=== PATIENT | female | born 1945 | race Caucasian/White ===

== ENCOUNTER 2017-06-18 10:17 | Outpatient (CLI) | payer MEDICARE, OTHER | END 2017-06-18 10:18 | disposition home or self-care (01) | LOC: BICMAMMO 10:17 | PROVIDERS: ATTEND Family Medicine | DX: Z12.31 Encounter for screening mammogram for malignant neoplasm of breast (principal); Z85.3 Personal history of malignant neoplasm of breast; Z80.3 Family history of malignant neoplasm of breast | CPT/HCPCS: 77063; 77067 ==

== ENCOUNTER 2018-01-13 14:52 | Observation (INO) | payer MEDICARE, OTHER ==
[2018-01-13] MEDS ORDERED: Water For Inject, Bacteriostat 30 ML ONE (15:11)
[2018-01-13] MEDS ORDERED: methylPREDNISolone Sod Succ/PF 125 MG/2 ML VIAL ONE (15:11)
[2018-01-13] MEDS ORDERED: EPINEPHrine 1 MG/ML AMP ONE (15:11)
[2018-01-13] MEDS ORDERED: diphenhydrAMINE 50 MG/ML VIAL ONE (15:11)
[2018-01-13] MEDS ORDERED: Famotidine/PF 20 mg/2ml Vial ONE (15:11)
[2018-01-13 15:22] LABS: Hemoglobin 13.7 g/dL (12.0-16.0); Mean Corpuscular Hemoglobin 29.7 pg (27.0-31.0); Mean Corpuscular Volume 92.9 fL (78.0-98.0); Mean Platelet Volume 7.3 fL (7.4-10.4); Platelet Count 457 thou/uL (130-400); RBC Distribution Width 12.3 % (11.5-14.5); Red Blood Cell (RBC) Count 4.63 mill/uL (4.20-5.40); White Blood Cell (WBC) Count 9.5 thou/uL (4.8-10.8)
[2018-01-13 15:42] LABS: ALT (SGPT) 14 U/L (8-55); AST (SGOT) 20 U/L (5-34); Albumin 3.9 g/dL (3.4-4.8); Alkaline Phosphatase 39 U/L (40-150); Anion Gap 14 mmol/L (10-20); BUN (Urea Nitrogen) 20 mg/dL (9.8-20.1); Bilirubin, Total 0.5 mg/dL (0.2-1.2); Calc. Creatinine Clearance 0 mL/min (70-130); Calcium 9.4 mg/dL (7.8-10.44); Carbon Dioxide 22 mmol/L (23-31); Chloride 110 mmol/L (98-107); Estimated GFR-MDRD 52; Globulin 2.6 g/dL (2.4-3.5); Glucose 122 mg/dL (83-110); Potassium 4.2 mmol/L (3.5-5.1); Protein, Total 6.5 g/dL (6.0-8.3); Sodium 142 mmol/L (136-145)
--- NOTE | 2018-01-13 15:46 | CT ---
CT HEAD NONCONTRAST: Indication: New onset dizziness, slurred speech, stroke alert. FINDINGS: There is intracranial streak artifact from patient motion, related to the calvarium. Otherwise, there is no evidence of acute intracranial hemorrhage, mass effect, midline shift of ventriculomegaly. Mil d chronic ischemic disease is present. There is mild mucosal thickening of the paranasal sinuses. IMPRESSION: No acute intracranial abnormality. Telephone call of findings placed to ED physician, Reji Lund, at 1537 hours, 01/13/2018. POS: PAT
[2018-01-13 15:47] LABS: PTT 27.5 SEC (22.9-36.1); Prothrombin Time 13.5 SEC (12.0-14.7)
[2018-01-13 15:48] LABS: Band 1 % (5-11); Eosinophils 4 % (0-10); Lymphocytes 68 % (21-51); MDiff Complete? YES; Monocytes 3 % (0-10); Neutrophil 24 % (42-75); PLT Morphology Comment Appears Increased
[2018-01-13 15:54] LABS: CKMB 1.2 ng/mL (0-6.6); Troponin I Less than 0.010 ng/mL (< 0.028)
[2018-01-13] MEDS ORDERED: Aspirin 81 mg Enteric Coated Tablet ONE (16:23)
[2018-01-13] MEDS ORDERED: Iopamidol 370 76% 100 ML VIAL ONE (16:31)
--- NOTE | 2018-01-13 16:53 | CT ---
CTA NECK WITH 3D VOLUME RENDERING AND WITH CONTRAST CTA HEAD WITH 3D VOLUME RENDERING AND WITH CONTRAST 01/13/18 INDICATION: Dizziness, blurred vision, facial droop, stroke alert. FINDINGS: The imaged aortic arch is patent and there is gross patency of the great vessel origins that emanate from the aortic arch although these are partially obscured by streak artifact from adjacent venous co ntrast bolus. No high grade stenosis of either subclavian artery. The bilateral common carotid arteri es reveal symmetric caliber without high grade stenosis or occlusion. No high grade stenosis of eithe r cervical ICA. Evaluation of each vertebral artery is performed which reveals a dominant right verte bral artery which is patent throughout its course. The nondominant, diffusely small caliber left vert ebral artery is patent. Evaluation of the [place] of [place]res reveals no significant stenosis or evidenc e of occlusion. There is vascular calcification at each carotid siphon without significant stenosis e vident. IMPRESSION: Mild atherosclerotic vascular disease without high grade stenosis or occlusion. Telephone call of findings placed to ER physician, Bhumika Lund at 1553 hours, 01/13/18. Code CR POS: PAT
[2018-01-13] MEDS ORDERED: Acetaminophen 325 MG TAB PO PRN (18:24)
[2018-01-13] MEDS ORDERED: hydrALAZINE 20 MG/ML VIAL SLOW IVP PRN (18:24)
[2018-01-13] MEDS ORDERED: diphenhydrAMINE 50 MG/ML VIAL IVP PRN (18:28)
--- NOTE | 2018-01-13 19:01 | HP ---
DATE OF ADMISSION: 01/13/2018 PRIMARY CARE PHYSICIAN: Chyna Nichols M.D. CHIEF COMPLAINT: Allergic reaction. HISTORY OF PRESENT ILLNESS: Ms. Greenberg is a pleasant 72-year-old lady who was seen at [facility] on 01/13/2018. She denies having any drug allergies. She also reports eating shrimp in the past without any problem . Today, she had shrimp for lunch. Two hours later, both her hands started itching and turned red. Th e sensation traveled up both arms. She then reported blurred vision when she presented to the emerge ncy room, but reports that is no longer the case. She denies any tongue swelling. She reports any s ensation of airway problems in the form of obstruction. She denies any nausea or vomiting. She repo rts feeling better at this time. REVIEW OF SYSTEMS: All other systems reviewed and found to be negative. PAST MEDICAL HISTORY: Hypertension, diabetes mellitus type 2, dyslipidemia and asthma. PAST SURGICAL HISTORY: Tonsillectomy. SOCIAL HISTORY: The patient denies tobacco use, alcohol use or recreational drug use. CODE STATUS: I discussed her code status. She is full code. Her surrogate decision maker is Michael Greenberg. FAMILY HISTORY: She reports a history of cerebrovascular accident in her mother. ALLERGIES: No known drug allergies. CURRENT MEDICATIONS: The patient is unable to recall the names of her medications. This will need t o be clarified. PHYSICAL EXAMINATION: GENERAL: Ms. Greenberg is awake and alert, not in acute distress. VITAL SIGNS: Blood pressure is 124/59, pulse 98, respiratory rate 17 and oxygen saturation 100% on r oom air. She is afebrile. When she presented to the emergency room, she had a blood pressure of 70/ 45 and pulse of 90. EYES: No scleral icterus. No conjunctival pallor. She has bilateral ecchymosis, worse on the left. Visual acuity is preserved. ENT: Moist mucous membranes. No oropharyngeal erythema or exudates. No swollen tongue. No swollen lips. NECK: Supple, nontender. Trachea is midline. RESPIRATORY: Accessory muscles of breathing are not active. Chest wall movements are symmetric bila terally. LUNGS: Clear to auscultation without wheeze, rhonchi or crepitations. CARDIOVASCULAR: S1 and S2 are heard, regular. Peripheral pulses palpable. No carotid bruit. No pe ricardial rub. ABDOMEN: Soft, nontender. Bowel sounds are heard. No hepatomegaly, no splenomegaly. NEUROLOGIC: She has right facial droop. Otherwise, cranial nerves II-XII are intact. No focal massimo r or sensory deficits. Power is 5/5 in all 4 extremities. Deep tendon reflexes are 2+. Plantars do wngoing bilaterally. MUSCULOSKELETAL: Power is 5/5 in all 4 extremities. SKIN: No rashes or subcutaneous nodules. LYMPHATIC: No cervical lymphadenopathy. PSYCHIATRIC: Normal mood, normal affect. The patient is oriented to person, place and time. LABORATORY DATA: Ms. Greenberg's labs and investigations were reviewed. I reviewed her electrocardiogr am, which shows normal sinus rhythm, no ST changes to suggest an acute coronary syndrome. I also rev iewed noncontrast CT scan of the brain, which does not show any bleed or infarct. She also had CT an giogram of [place] of [place], which showed mild atherosclerotic vascular disease without high grade st enosis or occlusion. She has normal white count, normal hemoglobin, elevated platelet count of 457,0 00, neutrophil percentage decreased at 24, lymphocyte percentage increased at 68%, INR 1.0, normal so dium, normal potassium, slightly decreased carbon dioxide of 22, normal creatinine, unremarkable live r profile and normal troponin I. ASSESSMENT AND PLAN: Ms. Greenberg is a pleasant 72-year-old lady who was seen at [facility] on 01/13/2018. Her problem list includes: 1. Allergic reaction: Ms. Greenberg appears to have presented with allergic reaction to shrimp. She h as received epinephrine, H1 and H2 blockers and steroids, with improvement in her symptoms. She will be admitted to the hospital for observation. We will continue her on H2 obey, steroids and p.r.n . H1 obey. 2. Ischemic cerebrovascular accident: Suspected, given the facial droop. CT scan of the brain is u nremarkable. We will check MRI of brain and 2D echocardiogram. We will consult Neurology Service fo r opinion and help with management. She takes baby aspirin at home. We will continue her on aspirin . 3. Dyslipidemia: Continue the patient on statin once clarified. 4. Diabetes mellitus type 2: Start Accu-Cheks, insulin sliding scale. Many thanks for allowing me to participate in your patient's care. Please feel free to contact me wi th any questions or concerns. LEVEL OF RISK: High. LEVEL OF COMPLEXITY: High.
[2018-01-13 19:42] LABS: Troponin I Less than 0.010 ng/mL (< 0.028)
[2018-01-13] MEDS ORDERED: Atorvastatin Calcium 40 MG TAB PO SCH (21:00)
[2018-01-13 23:47] LABS: Troponin I 0.013 ng/mL (< 0.028)
[2018-01-14] MEDS: Famotidine/PF 20 mg/2ml Vial SLOW IVP SCH ×2 (00:08→10:38)
[2018-01-14 01:47] VITALS: BMI 28.3
[2018-01-14 04:44] LABS: #Basophils 0.1 thou/uL (0.0-0.2); #Lymphocytes 1.2 thou/uL (1.20-3.40); #Monocytes 0.1 thou/uL (0.11-0.59); #Neutrophils 9.4 thou/uL (1.40-6.50); %Basophils 0.7 % (0.0-1.0); %Eosinophils 0.1 % (0.0-10.0); %Lymphocytes 10.8 % (21.0-51.0); %Monocytes 0.6 % (0.0-10.0); %Neutrophils 87.8 % (42.0-75.0); Hemoglobin 12.5 g/dL (12.0-16.0); Mean Corpuscular HGB CONC 32.2 g/dL (32.0-36.0); Mean Corpuscular Hemoglobin 29.9 pg (27.0-31.0); Mean Corpuscular Volume 92.8 fL (78.0-98.0); Mean Platelet Volume 7.5 fL (7.4-10.4); Platelet Count 374 thou/uL (130-400); RBC Distribution Width 12.1 % (11.5-14.5); Red Blood Cell (RBC) Count 4.17 mill/uL (4.20-5.40); White Blood Cell (WBC) Count 10.7 thou/uL (4.8-10.8)
[2018-01-14 05:05] LABS: Anion Gap 10 mmol/L (10-20); BUN (Urea Nitrogen) 17 mg/dL (9.8-20.1); Calc. Creatinine Clearance 71 mL/min (70-130); Calcium 9.1 mg/dL (7.8-10.44); Carbon Dioxide 23 mmol/L (23-31); Cardiac Risk 2.6 (Less than 4.5); Chloride 109 mmol/L (98-107); Cholesterol 139 mg/dl (< 200 Desired); Estimated GFR-MDRD 71; Glucose 148 mg/dL (83-110); HDL Cholesterol 54 mg/dL (>60 Neg Risk); LDL Cholesterol, Calculated 79 mg/dL; Potassium 3.9 mmol/L (3.5-5.1); Sodium 138 mmol/L (136-145); Triglycerides 28 mg/dL (Less than 150)
[2018-01-14] MEDS ORDERED: Insulin Regular 300 UNITS/3 ML VIAL SC PRN (05:40)
[2018-01-14] MEDS ORDERED: Dextrose 5% in Water 1,000 ML IV PRN (05:40)
[2018-01-14] MEDS ORDERED: Dextrose 50% Abboject 50 ML SYRINGE IVP PRN (05:40)
[2018-01-14] MEDS ORDERED: Enoxaparin Sodium 40 MG/0.4 ML SYRINGE SC SCH (09:00)
[2018-01-14] MEDS ORDERED: Aspirin 81 mg Enteric Coated Tablet PO SCH (09:00)
--- NOTE | 2018-01-14 09:09 | MRI ---
MRI BRAIN WITHOUT CONTRAST: Date: 01/14/18 HISTORY: Dizziness, slurred speech, right-sided decreased sensation. FINDINGS: Correlation is made with the CT scan from previous day. No restricted diffusion is seen. No evidence of infarct, hemorrhage, midline shift, or abnormal extra -axial fluid collections are seen. The ventricular size is normal and the basilar cisterns are patent . No significant signal abnormalities are seen on the highly sensitive FLAIR images. No tonsillar her niation is identified. The visualized paranasal sinuses and mastoid air cells appear well aerated. IMPRESSION: No evidence of acute intracranial process. POS: C
--- NOTE | 2018-01-14 13:20 | PDOC.PN ---
- Subjective Encounter Start Date: 01/14/18 Encounter Start Time: 13:18 Ms. Greenberg was seen today in follow-up of Allergic reaction, and right facial droop, and trouble with word finding. She says all of her symptoms have improved. - Objective Resuscitation Status: Resuscitation Status FULL:Full Resuscitation MAR Reviewed: Yes Vital Signs & Weight: Vital Signs (12 hours) Temp Pulse Pulse Resp BP BP Pulse Ox 01/14/18 11:50 98.1 F 65 20 117/57 L 98 01/14/18 09:01 69 148/79 H 01/14/18 08:30 97.7 F 59 L 18 148/79 H 100 01/14/18 04:00 97.7 F 69 16 130/66 94 L Weight Weight 154 lb 6.4 oz I&O: 01/13/18 01/14/18 01/15/18 06:59 06:59 06:59 Intake Total 425 Balance 425 Result Diagrams: 01/14/18 04:05 01/14/18 04:05 Additional Labs: Accuchecks 01/14/18 01/14/18 01/13/18 10:36 05:59 15:32 POC Glucose 134 H 137 H 119 H Phys Exam - Physical Examination HEENT: PERRLA, sclera anicteric Respiratory: no wheezing, no rales, no rhonchi, clear to auscultation bilateral Cardiovascular: RRR, no significant murmur, no rub Gastrointestinal: soft, non-tender, no distention, positive bowel sounds Musculoskeletal: no edema Neurological: non-focal, normal sensation, moves all 4 limbs Dx/Plan (1) Allergic reaction Code(s): T78.40XA - ALLERGY, UNSPECIFIED, INITIAL ENCOUNTER Status: Acute (2) Weakness on right side of face Code(s): R29.810 - FACIAL WEAKNESS Status: Acute (3) Hypertension Code(s): I10 - ESSENTIAL (PRIMARY) HYPERTENSION Status: Chronic (4) Diabetes mellitus type 2 in nonobese Code(s): E11.9 - TYPE 2 DIABETES MELLITUS WITHOUT COMPLICATIONS Status: Chronic (5) Dyslipidemia Code(s): E78.5 - HYPERLIPIDEMIA, UNSPECIFIED Status: Chronic - Plan * Allergic reaction- resolved- can discontinue IV steroids * Right facial droop, and trouble with word finding- ? TIA- she does have risk factors for cerebral vascular disease- Will follow-up with the CTA of neck and Neurology evaluation, as patient also says she " saw bright colors" when the episode occurred * HTN- Blood pressure is stable * DM- blood glucose is stable * Dyslipidemia - continue Lipitor.
[2018-01-14 16:11] VITALS: BP 114/58; TEMP 97.9
--- NOTE | 2018-01-14 20:45 | CON ---
DATE OF CONSULTATION: 01/14/2018 NEUROLOGY CONSULTATION CONSULTING PHYSICIAN: Hospitalist Service. IMPRESSION: 1. Allergic reaction, probably to iodine. 2. Diabetes. 3. Hypertension. 4. Reflux. PLAN: Discharge on current medications. HISTORY OF PRESENT ILLNESS: Ms. Greenberg is a 72-year-old woman who reports that she had gone to eat a nd had shrimp. Following her meal, she started noticing that her hand started turning pink. She als o noted that she felt a bit dizzy and her whites of her eyes began to get a bit red. Her speech bega n to stutter a bit and she became concerned. This only lasted a matter of a few seconds. She was br ought to the emergency room for evaluation. She had a CT scan of the brain and CT angio, which were unremarkable. She had a subsequent followup MRI of the brain, which was completely normal as well. The patient has not had any further symptoms since then. Her vital signs have been stable and she herrera s been afebrile. PAST MEDICAL HISTORY: Hypertension, diabetes, reflux, breast mass that apparently was benign. ALLERGIES: SHELLFISH. SOCIAL HISTORY: No tobacco or alcohol use. FAMILY HISTORY: Noncontributory. REVIEW OF SYSTEMS: No complaint of headache, nausea, vomiting, facial droop, lateralized weakness or numbness. PHYSICAL EXAMINATION: VITAL SIGNS: Blood pressure 114/58, pulse 58, respirations 20, temperature 97.9. HEENT: Pupils equal and reactive. Conjunctivae are clear. Oropharynx clear. NECK: Supple. No lymphadenopathy. EXTREMITIES: No cyanosis, clubbing or edema. NEUROLOGIC: She is alert and appropriate. Her speech is fluent and clear. Exam is nonfocal. She c an walk independently. IMAGING: MRI images were reviewed. SUMMARY: This is a 72-year-old woman that had a probable allergic reaction to shellfish. I do not s ee any evidence of an acute neurologic event. I would continue her current home medications.
--- NOTE | 2018-01-15 13:34 | CT ---
CTA NECK WITH 3D VOLUME RENDERING AND WITH CONTRAST CTA HEAD WITH 3D VOLUME RENDERING AND WITH CONTRAST 01/13/18 INDICATION: Dizziness, blurred vision, facial droop, stroke alert. FINDINGS: The imaged aortic arch is patent and there is gross patency of the great vessel origins that emanate from the aortic arch although these are partially obscured by streak artifact from adjacent venous co ntrast bolus. No high grade stenosis of either subclavian artery. The bilateral common carotid arteri es reveal symmetric caliber without high grade stenosis or occlusion. No high grade stenosis of eithe r cervical ICA. Evaluation of each vertebral artery is performed which reveals a dominant right verte bral artery which is patent throughout its course. The nondominant, diffusely small caliber left vert ebral artery is patent. Evaluation of the [place] of [place] reveals no significant stenosis or evidenc e of occlusion. There is vascular calcification at each carotid siphon without significant stenosis e vident. IMPRESSION: Mild atherosclerotic vascular disease without high grade stenosis or occlusion. Telephone call of findings placed to ER physician, Bhumika Lund at 1553 hours, 01/13/18. Code CR
--- NOTE | 2018-01-15 14:05 | DIS ---
DATE OF ADMISSION: 01/13/2018 DATE OF DISCHARGE: 01/14/2018 PRIMARY CARE PHYSICIAN: Cyhna Nichols MD DISCHARGE DISPOSITION: Home. PRIMARY DISCHARGE DIAGNOSES: 1. 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 2. Hypertension. 3. Diabetes mellitus type 2. 4. Dyslipidemia. 5. Asthma. DISCHARGE MEDICATIONS: She is to continue her home medications. These were not reconciled during he r hospital stay. PROCEDURES DONE DURING ADMISSION: The patient had a CT scan of the brain, which was negative for any acute intracranial abnormality. The patient also had a CT angiogram showing mild atherosclerotic va scular disease without any high-grade stenosis or occlusion. The patient had an MRI of the brain elizabeth wing no evidence of any acute intracranial infarct as well as an echocardiogram showing an ejection f raction of 60%-65%. There was mildly dilated left atrium. There was mild pulmonic regurgitation and small pericardial effusion without tamponade. HOSPITAL COURSE: Ms. Greenberg is a pleasant 72-year-old female who presented to the emergency room aft er she suffered what appears to be an anaphylactoid-type allergic reaction to SHELLFISH, possibly as a result of the iodine in the shellfish. She says she had eaten shrimp before without any difficulty , but this time, she started to itch after eating some, turned red, and had a strange sensation trave ling up both arms, blurred vision as well. This later resolved after she was treated in the ER with IV steroids and IV H1 and H2 blockers. She also had mentioned some slurred speech and a strange sens ation of seeing bright colors. For this reason, she was evaluated by Neurology for possible TIA or s troke-like symptoms. She was evaluated by Dr. Miguel. He felt that her symptoms were likely the re sult of the allergic reaction and not a primary neurological event. Therefore, no changes in medicat ions were recommended or any additional workup. MRI and echo were negative, as well as CT angiogram of the neck. She was back to her baseline the following day and was therefore discharged home in sta ble condition. She is to follow up with her primary care physician in 1-2 weeks.
== END 2018-01-14 18:38 | disposition home or self-care (01) ==
LOC: ERS 14:52 → ERHOLD 16:59 → 2SE 23:04
PROVIDERS: ADMIT Internal Medicine; ATTEND Internal Medicine
DX: T78.09XA Anaphylactic reaction due to other food products, initial encounter (principal); R29.810 Facial weakness; R47.81 Slurred speech; E11.9 Type 2 diabetes mellitus without complications; E78.5 Hyperlipidemia, unspecified; I10 Essential (primary) hypertension; J45.909 Unspecified asthma, uncomplicated; K21.9 Gastro-esophageal reflux disease without esophagitis; I31.3 Pericardial effusion (noninflammatory); Z79.899 Other long term (current) drug therapy
CPT/HCPCS: 70450; 70496; 70498; 70551; 80048; 80053; 80061; 82550; 82553; 82962 ×2; 84484 ×2; 85025 ×2; 85610; 85730; 93005; 93306; 96361; 96372 ×2; 96374; 96375; 96376; 97139 ×5; 99285; G0378 ×2; G8978; G8979; G8980; G8987; G8988; G8989; 36415; 36416; G9168-GN-CJ; G9169-GN-CJ; J0171; J1200; J1650; J2920; J2930; S0028

== ENCOUNTER 2018-06-21 11:42 | Outpatient (CLI) | payer MEDICARE ==
--- NOTE | 2018-06-21 13:16 | MMO ---
Bilateral MAMMO Bilat Screen DDI+DOUG. CLINICAL HISTORY: Patient is 73 years old and is seen for screening. The patient has the following family history of breast cancer: maternal aunt. The patient has a history of malignant (generic) in the right breast at age 41. The patient has a history of right Excisional Biopsy at age 41 - malignant and right Lumpectomy at age 41 - malignant. VIEWS: The views performed were: bilateral craniocaudal with tomosynthesis and bilateral mediolateral oblique with tomosynthesis. FILMS COMPARED: The present examination has been compared to prior imaging studies performed at [facility] on 11/04/2007, 11/06/2008, 11/06/2009, 06/10/2013, 06/12/2014, 06/14/2015, 06/17/2016 and 06/18/2017, and at [facility] on 10/27/2005 and 11/02/2006. MAMMOGRAM FINDINGS: There are scattered fibroglandular densities. There are stable benign appearing calcifications seen in both breasts. There are no suspicious masses, suspicious calcifications, or new areas of architectural distortion. IMPRESSION: THERE IS NO MAMMOGRAPHIC EVIDENCE OF MALIGNANCY. A ROUTINE FOLLOW-UP MAMMOGRAM IN 1 YEAR IS RECOMMENDED. THE RESULTS OF THIS EXAM WERE SENT TO THE PATIENT. ACR BI-RADS Category 2 - Benign finding MAMMOGRAPHY NOTE: 1. A negative mammogram report should not delay a biopsy if a dominant of clinically suspicious mass is present. 2. Approximately 10% to 15% of breast cancers are not detected by mammography. 3. Adenosis and dense breasts may obscure an underlying neoplasm.
== END 2018-06-21 11:43 | disposition home or self-care (01) ==
LOC: BICMAMMO 11:42
PROVIDERS: ATTEND Family Medicine
DX: Z12.31 Encounter for screening mammogram for malignant neoplasm of breast (principal); Z85.3 Personal history of malignant neoplasm of breast; Z80.3 Family history of malignant neoplasm of breast
CPT/HCPCS: 77063; 77067

== ENCOUNTER 2021-10-24 08:41 | Outpatient (CLI) | payer MEDICARE, OTHER | END 2021-10-24 08:42 | disposition home or self-care (01) | LOC: MRI 08:41 | PROVIDERS: ATTEND Nurse Practitioner Family | DX: F03.90 Unspecified dementia, unspecified severity, without behavioral disturbance, psychotic disturbance, mood disturbance, and anxiety (principal) | CPT/HCPCS: 70551 ==

== ENCOUNTER 2022-09-06 02:54 | Inpatient (IN) | payer MEDICARE, OTHER ==
[2022-09-06 03:20] LABS: #Basophils 0.1 thou/uL (0.0-0.2); #Monocytes 1.1 thou/uL (0.11-0.59); #Neutrophils 10.9 thou/uL (1.40-6.50); %Basophils 0.7 % (0.0-1.0); %Eosinophils 0.3 % (0.0-10.0); %Lymphocytes 17.9 % (21.0-51.0); %Monocytes 7.2 % (0.0-10.0); %Neutrophils 72.8 % (42.0-75.0); Hemoglobin 15.3 g/dL (12.0-16.0); Mean Corpuscular HGB CONC 33.3 g/dL (32.0-36.0); Mean Corpuscular Hemoglobin 29.3 pg (27.0-31.0); Mean Corpuscular Volume 87.8 fl (78.0-98.0); Mean Platelet Volume 9.8 fL (7.4-10.4); Platelet Count 333 10x3/uL (130-400); Red Blood Cell (RBC) Count 5.23 mill/uL (4.20-5.40); White Blood Cell (WBC) Count 14.9 10x3/uL (4.8-10.8)
[2022-09-06 03:42] LABS: ALT (SGPT) 25 U/L (8-55); AST (SGOT) 17 U/L (5-34); Albumin 3.9 g/dL (3.4-4.8); Alkaline Phosphatase 77 U/L (40-110); Anion Gap 17 mmol/L (10-20); BUN (Urea Nitrogen) 15 mg/dL (9.8-20.1); Bilirubin, Total 1.5 mg/dL (0.2-1.2); Calc. Creatinine Clearance 0 mL/min (70-130); Calcium 9.6 mg/dL (7.8-10.44); Carbon Dioxide 19 mmol/L (23-31); Chloride 105 mmol/L (98-107); Estimated GFR 67; Globulin 3.5 g/dL (2.4-3.5); Glucose 324 mg/dL (83-110); Protein, Total 7.4 g/dL (5.8-8.1); Sodium 137 mmol/L (136-145)
[2022-09-06] MEDS ORDERED: Cefepime 2 GM VIAL ONE (04:21)
[2022-09-06] MEDS ORDERED: Vancomycin 1 GM/200 ML (FROZEN) BAG ONE ×2 (04:22→04:57)
[2022-09-06 05:01] LABS: Bacteria/HPF 1+ HPF (None Seen); Bilirubin Negative (Negative); Blood, Urine 2+ (Negative); CAUTI Indications for Culture Alt mental st,lethar; Clarity Clear (Clear); Glucose, Urine (Dipstick) Greater than 1000 mg/dL (Negative); Ketone, Urine Negative (Negative); Leukocyte 25 Leu/uL (Negative); Nitrite Negative (Negative); Protein, Urine (Dipstick) 50 mg/dL (Neg-Trace); RBC/HPF 0-3 HPF (0-3); Urobilinogen Normal mg/dL (Less than 2); pH, Urine 5.5 (5.0-9.0)
[2022-09-06 05:02] LABS: Urine Culture Reflex No No
[2022-09-06] MEDS ORDERED: hydrALAZINE 20 MG/ML VIAL ONE (05:48)
[2022-09-06 07:06] LABS: Lactic Acid 2.2 mmol/L (0.5-2.2)
[2022-09-06] MEDS ORDERED: Glucagon 1 MG/ML KIT IM PRN (10:37)
[2022-09-06] MEDS ORDERED: Ondansetron ODT 4 MG TAB PO PRN (10:37)
[2022-09-06] MEDS ORDERED: Senokot S 8.6-50 MG TAB PO PRN (10:37)
[2022-09-06] MEDS ORDERED: Acetaminophen 650 MG Suppository PR PRN (10:37)
[2022-09-06] MEDS ORDERED: Dextrose 50% Abboject 50 ML SYRINGE SLOW IVP PRN (10:37)
[2022-09-06] MEDS ORDERED: Dextrose 5% in Water 1,000 ML IV PRN (10:37)
[2022-09-06] MEDS ORDERED: Bisacodyl 10 MG SUPP PR PRN (10:37)
[2022-09-06] MEDS ORDERED: Ondansetron PF 4 MG/2 ML Vial IVP PRN (10:37)
[2022-09-06] MEDS ORDERED: HumaLOG 300 UNITS/3 ML VIAL SC PRN ×2 (10:37)
[2022-09-06] MEDS ORDERED: Albuterol 200 PUFF (6.7GM INHALER) INH PRN (10:40)
[2022-09-06] MEDS ORDERED: Electrolyte Replacement Protocol FS SCH (10:45)
[2022-09-06 11:30] VITALS: BMI 31.6
[2022-09-06] MEDS: Sodium Chloride 0.45% 1,000 ML IV SCH (11:46)
[2022-09-06] MEDS ORDERED: Iopamidol 370 76% 100 ML VIAL ONE (11:47)
[2022-09-06] MEDS ORDERED: hydrALAZINE 20 MG/ML VIAL SLOW IVP PRN ×2 (14:23→18:37)
[2022-09-06] MEDS: Cefepime 1 GM in Sodium Chloride 0.9% 100 ML IVPB SCH (18:03)
[2022-09-06] MEDS: Atorvastatin Calcium 40 MG TAB PO SCH (20:13)
[2022-09-06] MEDS: Lisinopril 10 MG TAB PO SCH (20:13)
[2022-09-06] MEDS: Donepezil HCl 5 MG TAB PO SCH (20:13)
[2022-09-06] MEDS ORDERED: Vancomycin 1 GM in Premix Bag 1 BAG IVPB SCH (21:00)
[2022-09-07] MEDS: Sodium Chloride 0.45% 1,000 ML IV SCH ×2 (01:36→18:02)
[2022-09-07] MEDS: Cefepime 1 GM in Sodium Chloride 0.9% 100 ML IVPB SCH (04:33)
[2022-09-07 05:47] LABS: #Basophils 0.1 thou/uL (0.0-0.2); #Eosinphils 0.2 thou/uL (0.0-0.7); #Monocytes 0.9 thou/uL (0.11-0.59); %Basophils 0.7 % (0.0-1.0); %Eosinophils 1.9 % (0.0-10.0); %Lymphocytes 19.3 % (21.0-51.0); %Monocytes 7.1 % (0.0-10.0); %Neutrophils 70.2 % (42.0-75.0); Mean Corpuscular HGB CONC 32.8 g/dL (32.0-36.0); Mean Corpuscular Hemoglobin 29.4 pg (27.0-31.0); Mean Corpuscular Volume 89.7 fl (78.0-98.0); Mean Platelet Volume 9.7 fL (7.4-10.4); Platelet Count 293 10x3/uL (130-400); RBC Distribution Width 14.2 % (11.5-14.5); Red Blood Cell (RBC) Count 4.18 mill/uL (4.20-5.40); White Blood Cell (WBC) Count 12.8 10x3/uL (4.8-10.8)
[2022-09-07] MEDS ORDERED: VANCOMYCIN 1.75 GM/500 ML BAG 1.75 GM in Premix Bag 1 BAG IVPB SCH (06:00)
[2022-09-07 06:03] LABS: Hemoglobin 12.3 g/dL (12.0-16.0)
[2022-09-07 06:12] LABS: ALT (SGPT) 18 U/L (8-55); AST (SGOT) 14 U/L (5-34); Alkaline Phosphatase 59 U/L (40-110); Anion Gap 10 mmol/L (10-20); BUN (Urea Nitrogen) 9 mg/dL (9.8-20.1); Bilirubin, Total 1.1 mg/dL (0.2-1.2); Calc. Creatinine Clearance 96 mL/min (70-130); Calcium 8.2 mg/dL (7.8-10.44); Carbon Dioxide 21 mmol/L (23-31); Cardiac Risk 4.7 (Less than 4.5); Chloride 108 mmol/L (98-107); Cholesterol 175 mg/dl (< 200 Desired); Estimated GFR 90; Globulin 2.6 g/dL (2.4-3.5); Glucose 185 mg/dL (83-110); HDL Cholesterol 37 mg/dL (>60 Neg Risk); LDL Cholesterol, Calculated 112 mg/dL; Magnesium 1.9 mg/dL (1.6-2.6); Potassium 3.1 mmol/L (3.5-5.1); Protein, Total 5.6 g/dL (5.8-8.1); Sodium 136 mmol/L (136-145); Triglycerides 129 mg/dL (Less than 150)
[2022-09-07] MEDS ORDERED: Potassium Chloride 20 MEQ TAB PO SCH (08:00)
[2022-09-07] MEDS ORDERED: Magnesium 2 GM/50 ML(in water) 2 GM in Premix Bag 1 BAG IVPB SCH (08:00)
[2022-09-07] MEDS ORDERED: Aspirin 81 mg Enteric Coated Tablet PO SCH (09:00)
[2022-09-07] MEDS: Aspirin 81 mg Enteric Coated Tablet PO SCH (09:03)
[2022-09-07] MEDS: Lisinopril 10 MG TAB PO SCH ×2 (09:04→20:19)
[2022-09-07] MEDS: Cefepime 2 GM in Sodium Chloride 0.9% 100 ML IVPB SCH (18:00)
[2022-09-07] MEDS: Atorvastatin Calcium 40 MG TAB PO SCH (20:19)
[2022-09-07] MEDS: Donepezil HCl 5 MG TAB PO SCH (20:19)
[2022-09-08] MEDS: Cefepime 2 GM in Sodium Chloride 0.9% 100 ML IVPB SCH ×2 (04:06→16:37)
[2022-09-08] MEDS: Sodium Chloride 0.45% 1,000 ML IV SCH ×2 (04:06→16:37)
[2022-09-08 05:31] LABS: Anion Gap 14 mmol/L (10-20); BUN (Urea Nitrogen) 8 mg/dL (9.8-20.1); Calc. Creatinine Clearance 90 mL/min (70-130); Calcium 8.9 mg/dL (7.8-10.44); Carbon Dioxide 19 mmol/L (23-31); Chloride 106 mmol/L (98-107); Estimated GFR 87; Glucose 157 mg/dL (83-110); Potassium 3.3 mmol/L (3.5-5.1); Sodium 136 mmol/L (136-145)
[2022-09-08] MEDS ORDERED: Potassium Chloride 20 MEQ TAB PO SCH (08:00)
[2022-09-08 08:31] LABS: #Basophils 0.1 thou/uL (0.0-0.2); #Eosinphils 0.3 thou/uL (0.0-0.7); #Monocytes 0.9 thou/uL (0.11-0.59); %Basophils 0.8 % (0.0-1.0); %Eosinophils 3.4 % (0.0-10.0); %Lymphocytes 25.4 % (21.0-51.0); %Monocytes 8.7 % (0.0-10.0); %Neutrophils 60.8 % (42.0-75.0); Hemoglobin 12.5 g/dL (12.0-16.0); Mean Corpuscular HGB CONC 33.2 g/dL (32.0-36.0); Mean Corpuscular Hemoglobin 29.7 pg (27.0-31.0); Mean Corpuscular Volume 89.3 fl (78.0-98.0); Mean Platelet Volume 9.6 fL (7.4-10.4); Platelet Count 310 10x3/uL (130-400); RBC Distribution Width 13.9 % (11.5-14.5); Red Blood Cell (RBC) Count 4.21 mill/uL (4.20-5.40); White Blood Cell (WBC) Count 9.9 10x3/uL (4.8-10.8)
[2022-09-08] MEDS: Lisinopril 10 MG TAB PO SCH ×2 (09:06→21:14)
[2022-09-08] MEDS: Aspirin 81 mg Enteric Coated Tablet PO SCH (09:07)
[2022-09-08] MEDS ORDERED: Bisacodyl 10 MG SUPP PR SCH (10:00)
[2022-09-08] MEDS: Donepezil HCl 5 MG TAB PO SCH (21:14)
[2022-09-08] MEDS: Atorvastatin Calcium 40 MG TAB PO SCH (21:14)
[2022-09-09] MEDS: Cefepime 2 GM in Sodium Chloride 0.9% 100 ML IVPB SCH ×2 (04:25→15:36)
[2022-09-09 06:19] LABS: #Basophils 0.1 thou/uL (0.0-0.2); #Eosinphils 0.4 thou/uL (0.0-0.7); #Monocytes 0.8 thou/uL (0.11-0.59); #Neutrophils 4.8 thou/uL (1.40-6.50); %Eosinophils 4.3 % (0.0-10.0); %Lymphocytes 31.5 % (21.0-51.0); %Monocytes 9.3 % (0.0-10.0); %Neutrophils 53.1 % (42.0-75.0); Hemoglobin 11.9 g/dL (12.0-16.0); Mean Corpuscular HGB CONC 32.5 g/dL (32.0-36.0); Mean Corpuscular Hemoglobin 29.2 pg (27.0-31.0); Mean Corpuscular Volume 89.7 fl (78.0-98.0); Mean Platelet Volume 9.6 fL (7.4-10.4); Platelet Count 351 10x3/uL (130-400); RBC Distribution Width 13.8 % (11.5-14.5); Red Blood Cell (RBC) Count 4.08 mill/uL (4.20-5.40); White Blood Cell (WBC) Count 9.1 10x3/uL (4.8-10.8)
[2022-09-09 06:51] LABS: Anion Gap 11 mmol/L (10-20); BUN (Urea Nitrogen) 6 mg/dL (9.8-20.1); Calc. Creatinine Clearance 102 mL/min (70-130); Calcium 8.7 mg/dL (7.8-10.44); Carbon Dioxide 21 mmol/L (23-31); Chloride 108 mmol/L (98-107); Estimated GFR 92; Glucose 148 mg/dL (83-110); Potassium 3.4 mmol/L (3.5-5.1); Sodium 137 mmol/L (136-145)
[2022-09-09] MEDS ORDERED: Potassium Chloride 20 MEQ TAB PO SCH (08:00)
[2022-09-09] MEDS: Aspirin 81 mg Enteric Coated Tablet PO SCH (09:06)
[2022-09-09] MEDS: Sodium Chloride 0.45% 1,000 ML IV SCH (09:07)
[2022-09-09] MEDS: Lisinopril 10 MG TAB PO SCH ×2 (09:07→20:14)
[2022-09-09] MEDS: Pantoprazole 40 MG VIAL IVP SCH (09:07)
[2022-09-09] MEDS: metFORMIN 500 MG TAB PO SCH (17:15)
[2022-09-09] MEDS: Donepezil HCl 5 MG TAB PO SCH (20:14)
[2022-09-09] MEDS: Atorvastatin Calcium 40 MG TAB PO SCH (20:14)
[2022-09-09] MEDS: Acetaminophen 325 MG TAB PO PRN (20:15)
[2022-09-10] MEDS: Cefepime 2 GM in Sodium Chloride 0.9% 100 ML IVPB SCH ×2 (03:21→16:57)
[2022-09-10 07:00] LABS: #Basophils 0.1 thou/uL (0.0-0.2); #Eosinphils 0.4 thou/uL (0.0-0.7); #Monocytes 0.9 thou/uL (0.11-0.59); #Neutrophils 4.3 thou/uL (1.40-6.50); %Eosinophils 4.8 % (0.0-10.0); %Lymphocytes 33.6 % (21.0-51.0); %Monocytes 10.6 % (0.0-10.0); %Neutrophils 49.3 % (42.0-75.0); Hemoglobin 12.2 g/dL (12.0-16.0); Mean Corpuscular HGB CONC 32.9 g/dL (32.0-36.0); Mean Corpuscular Hemoglobin 29.2 pg (27.0-31.0); Mean Corpuscular Volume 88.8 fl (78.0-98.0); Mean Platelet Volume 9.7 fL (7.4-10.4); Platelet Count 370 10x3/uL (130-400); RBC Distribution Width 13.6 % (11.5-14.5); Red Blood Cell (RBC) Count 4.18 mill/uL (4.20-5.40); White Blood Cell (WBC) Count 8.8 10x3/uL (4.8-10.8)
[2022-09-10 07:33] LABS: Anion Gap 12 mmol/L (10-20); BUN (Urea Nitrogen) 5 mg/dL (9.8-20.1); Calc. Creatinine Clearance 99 mL/min (70-130); Calcium 9.1 mg/dL (7.8-10.44); Carbon Dioxide 24 mmol/L (23-31); Chloride 107 mmol/L (98-107); Estimated GFR 91; Glucose 140 mg/dL (83-110); Potassium 3.5 mmol/L (3.5-5.1); Sodium 139 mmol/L (136-145)
[2022-09-10] MEDS: Lisinopril 10 MG TAB PO SCH (09:09)
[2022-09-10] MEDS: metFORMIN 500 MG TAB PO SCH ×2 (09:09→16:57)
[2022-09-10] MEDS: Aspirin 81 mg Enteric Coated Tablet PO SCH (09:09)
[2022-09-10] MEDS: Pantoprazole 40 MG VIAL IVP SCH (09:11)
[2022-09-10] MEDS ORDERED: Potassium Chloride 20 MEQ TAB PO SCH (09:45)
[2022-09-10] MEDS: Acetaminophen 325 MG TAB PO PRN (12:38)
[2022-09-10] MEDS: Lisinopril 20 MG TAB PO SCH (20:58)
[2022-09-10] MEDS: Atorvastatin Calcium 40 MG TAB PO SCH (20:58)
[2022-09-10] MEDS: Donepezil HCl 5 MG TAB PO SCH (20:58)
[2022-09-11] MEDS: Cefepime 2 GM in Sodium Chloride 0.9% 100 ML IVPB SCH ×2 (04:07→16:07)
[2022-09-11 07:40] LABS: Anion Gap 12 mmol/L (10-20); BUN (Urea Nitrogen) 6 mg/dL (9.8-20.1); Calc. Creatinine Clearance 89 mL/min (70-130); Carbon Dioxide 24 mmol/L (23-31); Chloride 108 mmol/L (98-107); Estimated GFR 85; Glucose 119 mg/dL (83-110); Potassium 3.3 mmol/L (3.5-5.1); Sodium 141 mmol/L (136-145)
[2022-09-11] MEDS ORDERED: Potassium Chloride 20 MEQ TAB PO SCH ×2 (08:30)
[2022-09-11] MEDS: metFORMIN 500 MG TAB PO SCH ×2 (09:19→16:07)
[2022-09-11] MEDS: Aspirin 81 mg Enteric Coated Tablet PO SCH (09:19)
[2022-09-11] MEDS: Lisinopril 20 MG TAB PO SCH ×2 (09:19→20:45)
[2022-09-11] MEDS: Pantoprazole 40 MG VIAL IVP SCH (09:20)
[2022-09-11] MEDS: Donepezil HCl 5 MG TAB PO SCH (20:45)
[2022-09-11] MEDS: Acetaminophen 325 MG TAB PO PRN (20:45)
[2022-09-11] MEDS: Atorvastatin Calcium 40 MG TAB PO SCH (20:45)
[2022-09-12 06:40] LABS: Potassium 3.8 mmol/L (3.5-5.1)
[2022-09-12 07:45] VITALS: TEMP 97.6
[2022-09-12] MEDS: Pantoprazole 40 MG VIAL IVP SCH (09:19)
[2022-09-12] MEDS: Lisinopril 20 MG TAB PO SCH (09:19)
[2022-09-12] MEDS: Aspirin 81 mg Enteric Coated Tablet PO SCH (09:19)
[2022-09-12] MEDS: metFORMIN 500 MG TAB PO SCH ×2 (09:19→17:45)
[2022-09-12 16:42] VITALS: BP 144/84
== END 2022-09-12 19:09 | DRG 871 ==
LOC: ERS 02:54 → 2NO 09:02 → T4-A 09-08 16:03
PROVIDERS: ADMIT Internal Medicine; ATTEND Internal Medicine
DX: A41.9 Sepsis, unspecified organism (principal); G93.41 Metabolic encephalopathy; F03.90 Unspecified dementia, unspecified severity, without behavioral disturbance, psychotic disturbance, mood disturbance, and anxiety; E11.9 Type 2 diabetes mellitus without complications; E78.5 Hyperlipidemia, unspecified; E78.00 Pure hypercholesterolemia, unspecified; I10 Essential (primary) hypertension; E87.6 Hypokalemia; J45.909 Unspecified asthma, uncomplicated; Z90.49 Acquired absence of other specified parts of digestive tract; Z91.013 Allergy to seafood
CPT/HCPCS: 36415; 36416; 70450; 71045; 74177; 80048; 80053; 80061; 81001; 83036; 83605; 83735; 84132; 84443; 84484; 85025; 87040; 87086; 93005; 93306; 96365; 96367; 96375; C9113; J0360; J0692; J1650; J1815; J3370; J3370-JW; J3475; J3490; Q9967

== ENCOUNTER 2023-01-24 10:44 | Inpatient (IN) | payer OTHER ==
[2023-01-24 11:27] LABS: #Basophils 0.1 thou/uL (0.0-0.2); #Eosinphils 0.2 thou/uL (0.0-0.7); #Monocytes 0.9 thou/uL (0.11-0.59); #Neutrophils 6.9 thou/uL (1.40-6.50); %Basophils 0.5 % (0.0-1.0); %Eosinophils 1.5 % (0.0-10.0); %Lymphocytes 27.3 % (21.0-51.0); %Monocytes 7.8 % (0.0-10.0); %Neutrophils 62.5 % (42.0-75.0); Hemoglobin 13.2 g/dL (12.0-16.0); Mean Corpuscular HGB CONC 32.2 g/dL (32.0-36.0); Mean Corpuscular Hemoglobin 29.2 pg (27.0-31.0); Mean Corpuscular Volume 90.7 fl (78.0-98.0); Mean Platelet Volume 9.5 fL (7.4-10.4); Platelet Count 396 10x3/uL (130-400); RBC Distribution Width 13.2 % (11.5-14.5); Red Blood Cell (RBC) Count 4.52 mill/uL (4.20-5.40)
[2023-01-24 11:53] LABS: ALT (SGPT) 10 U/L (8-55); AST (SGOT) 15 U/L (5-34); Albumin 4.2 g/dL (3.4-4.8); Alkaline Phosphatase 60 U/L (40-110); Anion Gap 17 mmol/L (10-20); BUN (Urea Nitrogen) 18 mg/dL (9.8-20.1); Bilirubin, Total 0.9 mg/dL (0.2-1.2); Calc. Creatinine Clearance 0 mL/min (70-130); Calcium 9.7 mg/dL (7.8-10.44); Carbon Dioxide 24 mmol/L (23-31); Chloride 108 mmol/L (98-107); Estimated GFR 56; Globulin 2.8 g/dL (2.4-3.5); Glucose 136 mg/dL (83-110); Potassium 3.7 mmol/L (3.5-5.1); Sodium 145 mmol/L (136-145)
[2023-01-24] MEDS ORDERED: Boostrix 0.5 ML (Tdap) VIAL (>/=7 yrs of age) ONE (12:32)
[2023-01-24] MEDS ORDERED: Acetaminophen 500 MG TAB ONE (12:32)
[2023-01-24 18:22] LABS: Bilirubin Negative (Negative); Blood, Urine 1+ (Negative); CAUTI Indications for Culture Alt mental st,lethar; Clarity Clear (Clear); Glucose, Urine (Dipstick) Normal (Negative); Ketone, Urine Negative (Negative); Leukocyte 500 Leu/uL (Negative); Nitrite 2+ (Negative); Protein, Urine (Dipstick) 10 mg/dL (Neg-Trace); Squamous Epithelial None Seen HPF (0-3); Urobilinogen Normal mg/dL (Less than 2); WBC/HPF Greater than 50 HPF (0-3); pH, Urine 5.5 (5.0-9.0)
[2023-01-24 18:24] LABS: Bacteria/HPF 1+ HPF (None Seen); Specific Gravity, Urine Greater than 1.060 (1.002-1.036)
[2023-01-24 18:25] LABS: Urine Culture Reflex Yes Yes
[2023-01-24] MEDS ORDERED: Dextrose 5% in Water 1,000 ML IV PRN (18:48)
[2023-01-24] MEDS ORDERED: Ondansetron ODT 4 MG TAB PO PRN (18:48)
[2023-01-24] MEDS ORDERED: Ondansetron PF 4 MG/2 ML Vial IVP PRN (18:48)
[2023-01-24] MEDS ORDERED: HumaLOG 300 UNITS/3 ML VIAL SC PRN ×2 (18:48)
[2023-01-24] MEDS ORDERED: Dextrose 50% Abboject 50 ML SYRINGE SLOW IVP PRN (18:48)
[2023-01-24] MEDS ORDERED: Glucagon 1 MG/ML KIT IM PRN (18:48)
[2023-01-24] MEDS ORDERED: Acetaminophen 325 MG TAB PO PRN (18:48)
[2023-01-24] MEDS ORDERED: Sodium Chloride 0.9% 100 ML ONE (18:52)
[2023-01-24] MEDS ORDERED: cefTRIAXone (ROCEPHIN) 1 GM VIAL ONE (18:52)
[2023-01-24] MEDS: Donepezil HCl 5 MG TAB PO SCH (21:39)
[2023-01-24] MEDS: Atorvastatin Calcium 40 MG TAB PO SCH (21:39)
[2023-01-24] MEDS: Lisinopril 20 MG TAB PO SCH (21:40)
[2023-01-25 06:03] LABS: #Eosinphils 0.3 thou/uL (0.0-0.7); #Monocytes 0.7 thou/uL (0.11-0.59); #Neutrophils 5.6 thou/uL (1.40-6.50); %Basophils 0.4 % (0.0-1.0); %Lymphocytes 31.5 % (21.0-51.0); %Monocytes 7.5 % (0.0-10.0); %Neutrophils 57.3 % (42.0-75.0); Hematocrit 38.3 % (36.0-47.0); Hemoglobin 12.3 g/dL (12.0-16.0); Mean Corpuscular HGB CONC 32.1 g/dL (32.0-36.0); Mean Corpuscular Hemoglobin 28.9 pg (27.0-31.0); Mean Corpuscular Volume 89.9 fl (78.0-98.0); Mean Platelet Volume 9.8 fL (7.4-10.4); Platelet Count 391 10x3/uL (130-400); RBC Distribution Width 13.4 % (11.5-14.5); Red Blood Cell (RBC) Count 4.26 mill/uL (4.20-5.40); White Blood Cell (WBC) Count 9.7 10x3/uL (4.8-10.8)
[2023-01-25 06:32] LABS: Anion Gap 13 mmol/L (10-20); BUN (Urea Nitrogen) 13 mg/dL (9.8-20.1); Calc. Creatinine Clearance 80 mL/min (70-130); Calcium 9.3 mg/dL (7.8-10.44); Carbon Dioxide 26 mmol/L (23-31); Chloride 106 mmol/L (98-107); Estimated GFR 76; Glucose 125 mg/dL (83-110); Potassium 3.2 mmol/L (3.5-5.1); Sodium 142 mmol/L (136-145)
[2023-01-25] MEDS: Lisinopril 20 MG TAB PO SCH ×2 (08:31→20:35)
[2023-01-25] MEDS: Aspirin 81 mg Enteric Coated Tablet PO SCH (08:31)
[2023-01-25] MEDS: cefTRIAXone\\ROCEPHIN 1 GM in Sodium Chloride 0.9% 100 ML IVPB SCH (17:41)
[2023-01-25] MEDS: Atorvastatin Calcium 40 MG TAB PO SCH (20:35)
[2023-01-25] MEDS: Donepezil HCl 5 MG TAB PO SCH (20:35)
[2023-01-26 06:21] LABS: #Eosinphils 0.3 thou/uL (0.0-0.7); #Monocytes 0.8 thou/uL (0.11-0.59); #Neutrophils 4.1 thou/uL (1.40-6.50); %Basophils 0.5 % (0.0-1.0); %Eosinophils 3.3 % (0.0-10.0); %Lymphocytes 39.9 % (21.0-51.0); %Monocytes 9.4 % (0.0-10.0); %Neutrophils 46.7 % (42.0-75.0); Hematocrit 36.5 % (36.0-47.0); Hemoglobin 11.8 g/dL (12.0-16.0); Mean Corpuscular HGB CONC 32.3 g/dL (32.0-36.0); Mean Corpuscular Hemoglobin 28.7 pg (27.0-31.0); Mean Corpuscular Volume 88.8 fl (78.0-98.0); Mean Platelet Volume 9.9 fL (7.4-10.4); Platelet Count 366 10x3/uL (130-400); RBC Distribution Width 13.2 % (11.5-14.5); Red Blood Cell (RBC) Count 4.11 mill/uL (4.20-5.40); White Blood Cell (WBC) Count 8.8 10x3/uL (4.8-10.8)
[2023-01-26 07:05] LABS: Anion Gap 9 mmol/L (10-20); BUN (Urea Nitrogen) 11 mg/dL (9.8-20.1); Calc. Creatinine Clearance 85 mL/min (70-130); Calcium 8.8 mg/dL (7.8-10.44); Carbon Dioxide 28 mmol/L (23-31); Chloride 106 mmol/L (98-107); Estimated GFR 81; Glucose 121 mg/dL (83-110); Potassium 3.3 mmol/L (3.5-5.1); Sodium 140 mmol/L (136-145)
[2023-01-26] MEDS: Aspirin 81 mg Enteric Coated Tablet PO SCH (08:46)
[2023-01-26] MEDS: Lisinopril 20 MG TAB PO SCH ×2 (08:46→21:02)
[2023-01-26 14:31] VITALS: BMI 31.2
[2023-01-26] MEDS: cefTRIAXone\\ROCEPHIN 1 GM in Sodium Chloride 0.9% 100 ML IVPB SCH (18:02)
[2023-01-26] MEDS: Atorvastatin Calcium 40 MG TAB PO SCH (21:02)
[2023-01-26] MEDS: Donepezil HCl 5 MG TAB PO SCH (21:02)
[2023-01-27 06:42] LABS: Anion Gap 13 mmol/L (10-20); BUN (Urea Nitrogen) 13 mg/dL (9.8-20.1); Calc. Creatinine Clearance 78 mL/min (70-130); Calcium 8.9 mg/dL (7.8-10.44); Carbon Dioxide 23 mmol/L (23-31); Chloride 107 mmol/L (98-107); Estimated GFR 74; Glucose 120 mg/dL (83-110); Potassium 3.3 mmol/L (3.5-5.1); Sodium 140 mmol/L (136-145)
[2023-01-27 07:19] LABS: #Basophils 0.1 thou/uL (0.0-0.2); #Eosinphils 0.3 thou/uL (0.0-0.7); #Monocytes 0.9 thou/uL (0.11-0.59); #Neutrophils 4.6 thou/uL (1.40-6.50); %Basophils 0.6 % (0.0-1.0); %Eosinophils 2.6 % (0.0-10.0); %Monocytes 9.1 % (0.0-10.0); %Neutrophils 46.5 % (42.0-75.0); Hematocrit 38.9 % (36.0-47.0); Hemoglobin 12.7 g/dL (12.0-16.0); Mean Corpuscular HGB CONC 32.6 g/dL (32.0-36.0); Mean Corpuscular Hemoglobin 29.3 pg (27.0-31.0); Mean Corpuscular Volume 89.8 fl (78.0-98.0); Mean Platelet Volume 9.9 fL (7.4-10.4); Platelet Count 413 10x3/uL (130-400); RBC Distribution Width 13.2 % (11.5-14.5); Red Blood Cell (RBC) Count 4.33 mill/uL (4.20-5.40); White Blood Cell (WBC) Count 9.9 10x3/uL (4.8-10.8)
[2023-01-27] MEDS: Aspirin 81 mg Enteric Coated Tablet PO SCH (08:20)
[2023-01-27] MEDS: Lisinopril 20 MG TAB PO SCH ×2 (08:20→20:40)
[2023-01-27] MEDS ORDERED: Potassium Chloride 20 MEQ TAB PO SCH (08:45)
[2023-01-27] MEDS: Cefdinir 300 MG CAP PO SCH ×2 (08:59→20:40)
[2023-01-27] MEDS: Atorvastatin Calcium 40 MG TAB PO SCH (20:40)
[2023-01-27] MEDS: Donepezil HCl 5 MG TAB PO SCH (20:40)
[2023-01-28 06:03] LABS: #Basophils 0.1 thou/uL (0.0-0.2); #Eosinphils 0.3 thou/uL (0.0-0.7); #Neutrophils 4.9 thou/uL (1.40-6.50); %Basophils 0.5 % (0.0-1.0); %Lymphocytes 44.4 % (21.0-51.0); %Monocytes 8.5 % (0.0-10.0); %Neutrophils 43.3 % (42.0-75.0); Hematocrit 41.5 % (36.0-47.0); Hemoglobin 13.1 g/dL (12.0-16.0); Mean Corpuscular HGB CONC 31.6 g/dL (32.0-36.0); Mean Corpuscular Hemoglobin 28.4 pg (27.0-31.0); Mean Corpuscular Volume 89.8 fl (78.0-98.0); Mean Platelet Volume 9.7 fL (7.4-10.4); Platelet Count 459 10x3/uL (130-400); RBC Distribution Width 13.5 % (11.5-14.5); Red Blood Cell (RBC) Count 4.62 mill/uL (4.20-5.40); White Blood Cell (WBC) Count 11.2 10x3/uL (4.8-10.8)
[2023-01-28 06:43] LABS: Anion Gap 15 mmol/L (10-20); BUN (Urea Nitrogen) 13 mg/dL (9.8-20.1); Calc. Creatinine Clearance 77 mL/min (70-130); Calcium 9.4 mg/dL (7.8-10.44); Carbon Dioxide 24 mmol/L (23-31); Chloride 107 mmol/L (98-107); Estimated GFR 72; Glucose 120 mg/dL (83-110); Potassium 3.6 mmol/L (3.5-5.1); Sodium 142 mmol/L (136-145)
[2023-01-28] MEDS: Lisinopril 20 MG TAB PO SCH ×2 (08:59→20:20)
[2023-01-28] MEDS: Aspirin 81 mg Enteric Coated Tablet PO SCH (08:59)
[2023-01-28] MEDS: Cefdinir 300 MG CAP PO SCH ×2 (08:59→20:20)
[2023-01-28] MEDS ORDERED: Senokot S 8.6-50 MG TAB PO PRN (17:58)
[2023-01-28] MEDS: Donepezil HCl 5 MG TAB PO SCH (20:20)
[2023-01-28] MEDS: Atorvastatin Calcium 40 MG TAB PO SCH (20:20)
[2023-01-29] MEDS: Lisinopril 20 MG TAB PO SCH ×2 (10:02→20:08)
[2023-01-29] MEDS: Aspirin 81 mg Enteric Coated Tablet PO SCH (10:02)
[2023-01-29] MEDS: Cefdinir 300 MG CAP PO SCH ×2 (10:02→20:08)
[2023-01-29] MEDS: Atorvastatin Calcium 40 MG TAB PO SCH (20:08)
[2023-01-29] MEDS: Donepezil HCl 5 MG TAB PO SCH (20:14)
[2023-01-29 20:19] VITALS: TEMP 98.6
[2023-01-30] MEDS: Cefdinir 300 MG CAP PO SCH (08:31)
[2023-01-30] MEDS: Lisinopril 20 MG TAB PO SCH (08:31)
[2023-01-30] MEDS: Aspirin 81 mg Enteric Coated Tablet PO SCH (08:31)
[2023-01-30 16:31] VITALS: BP 112/69
== END 2023-01-30 18:08 | DRG 689 ==
LOC: ERS 10:44 → T4-A 18:46 → OBSVTOIN 01-26 16:06
PROVIDERS: ADMIT Physician Assistant; ATTEND Internal Medicine
DX: N39.0 Urinary tract infection, site not specified (principal); G93.41 Metabolic encephalopathy; S32.010A Wedge compression fracture of first lumbar vertebra, initial encounter for closed fracture; I50.32 Chronic diastolic (congestive) heart failure; E11.9 Type 2 diabetes mellitus without complications; E78.5 Hyperlipidemia, unspecified; F03.90 Unspecified dementia, unspecified severity, without behavioral disturbance, psychotic disturbance, mood disturbance, and anxiety; J45.909 Unspecified asthma, uncomplicated; I11.0 Hypertensive heart disease with heart failure; W19.XXXA Unspecified fall, initial encounter; R53.81 Other malaise; Z88.5 Allergy status to narcotic agent; Z79.899 Other long term (current) drug therapy; Z79.84 Long term (current) use of oral hypoglycemic drugs; Z79.82 Long term (current) use of aspirin; Z91.013 Allergy to seafood; Z90.89 Acquired absence of other organs; Z82.49 Family history of ischemic heart disease and other diseases of the circulatory system
CPT/HCPCS: 36415; 36416; 70450; 71260; 72100; 72125; 74177; 80048; 80053; 81001; 85025; 87040; 87077; 87086; 87186; 90715; 93005; J0696; J3490